=== PATIENT | male | born 1970 | race American Indian/Alaskan Native ===

== ENCOUNTER 2019-10-31 04:04 | Inpatient (IN) | payer OTHER ==
--- NOTE | 2019-10-31 04:36 | Consultation ---
History of Present Illness - Reason for Consult Consult date: 10/31/19 stroke alert - History of Present Illness [facility] Tele[facility]urology Consult Services Date of Service: 10/31/2019 04:09:54 Impression: Rule Out Acute Ischemic Stroke Right Hemispheric Infarct Comments/Sign-Out: 49yo M w pmh of ETOH use/abuse last drink last night last known normal at 19:00 presenting with nausea and vomiting and left sided weakness. Mechanism of Stroke: Possible Thromboembolic Possible Cardioembolic Small Vessel Disease Watershed Infarct Not Clear Metrics: Last Known Well: 10/30/2019 19:00:00 [facility] Notification Time: 10/31/2019 04:09:10 Arrival Time: 10/31/2019 04:04:00 Stamp Time: 10/31/2019 04:09:54 Time First Login Attempt: 10/31/2019 04:13:16 Video Start Time: 10/31/2019 04:13:16 Symptoms: left sided weakness NIHSS Start Assessment Time: 10/31/2019 04:16:00 Patient is not a candidate for Alteplase/Activase. Patient was not deemed candidate for Alteplase/Activase thrombolytics because of Last Well Known Above 4.5 Hours. Video End Time: 10/31/2019 04:35:16 CT head was reviewed and results were: pending official report - no gross hemorrhage, shift or mass; hypodensity on the left IC/subcortical region Clinical Presentation is Suggestive of Large Vessel Occlusive Disease, Recommendations are as Follows CTA Head and Neck. ED Physician notified of diagnostic impression and management plan on 10/31/2019 04:28:41 Our recommendations are outlined below. Recommendations: Activate Stroke Protocol Admission/Order Set Stroke/Telemetry Floor Neuro Checks Bedside Swallow Eval DVT Prophylaxis IV Fluids, Normal Saline Head of Bed 30 Degrees Euglycemia and Avoid Hyperthermia (PRN Acetaminophen) Antiplatelet Therapy Recommended Initiate Aspirin 325 MG Daily if hct confirmed neg for bleed Routine Consultation with Inhouse Neurology for Follow up Care Sign Out: Discussed with Emergency Department Provider History of Present Illness: Patient is a 49 year old Male. Patient was brought by private transportation with symptoms of left sided weakness 49yo M w pmh of ETOH use/abuse last drink last night last known normal at 19:00 presenting with nausea and vomiting and left sided weakness. Ambulatory at baseline. Denies tobacco or drug use. Brought by and left at triage/ER. He denies AC or any medical conditions or medications. Last seen normal was beyond 4.5 hours of presentation. There is no history of hemorrhagic complications or intracranial hemorrhage. There is no history of Recent Anticoagulants. There is no history of recent major surgery. There is no history of recent stroke. Past Medical History: There is NO history of Hypertension There is NO history of Diabetes Mellitus There is NO history of Hyperlipidemia There is NO history of Atrial Fibrillation There is NO history of Stroke Anticoagulant use: No Antiplatelet use: No Examination: BP(181/118), Pulse(87), Blood Glucose(107) 1A: Level of Consciousness - Arouses to minor stimulation + 1 1B: Ask Month and Age - Both Questions Right + 0 1C: Blink Eyes & Squeeze Hands - Performs Both Tasks + 0 2: Test Horizontal Extraocular Movements - Normal + 0 3: Test Visual Ramirez - No Visual Loss + 0 4: Test Facial Palsy (Use Grimace if Obtunded) - Minor paralysis (flat nasolabial fold, smile asymmetry) + 1 5A: Test Left Arm Motor Drift - Some Effort Against [place] + 2 5B: Test Right Arm Motor Drift - No Drift for 10 Seconds + 0 6A: Test Left Leg Motor Drift - Some Effort Against [place] + 2 6B: Test Right Leg Motor Drift - No Drift for 5 Seconds + 0 7: Test Limb Ataxia (FNF/Heel-Simms) - No Ataxia + 0 8: Test Sensation - Mild-Moderate Loss: Less Sharp/More Dull + 1 9: Test Language/Aphasia - Normal; No aphasia + 0 10: Test Dysarthria - Mild-Moderate Dysarthria: Slurring but can be understood + 1 11: Test Extinction/Inattention - No abnormality + 0 NIHSS Score: 8 Patient/Family was informed the Neurology Consult would happen via TeleHealth consult by way of interactive audio and video telecommunications and consented to receiving care in this manner. Due to the immediate potential for life-threatening deterioration due to underlying acute neurologic illness, I spent 31 minutes providing critical care. This time includes time for face to face visit via telemedicine, review of medical records, imaging studies and discussion of findings with providers, the patient and/or family. Dr Laureen Martin [facility] Case [id number] Medications and Allergies Allergies Allergy/AdvReac Type Severity Reaction Status Date / Time codeine Allergy Vomiting Verified 10/31/19 04:06 Exam - Constitutional Vitals: Temp Pulse Resp BP Pulse Ox 97.7 F 87 20 181/118 97 10/31/19 04:05 10/31/19 04:05 10/31/19 04:05 10/31/19 04:05 10/31/19 04:05
--- NOTE | 2019-10-31 04:49 | Cat Scan Report ---
CT HEAD WITHOUT CONTRAST INDICATION / CLINICAL INFORMATION: CODE STROKE PROTOCOL!! LEFT sided deficit, facial droop, weakness. TECHNIQUE: All CT scans at this location are performed using CT dose reduction for ALARA by means of automated e xposure control. COMPARISON: None available. FINDINGS: HEMORRHAGE: None. EXTRA-AXIAL SPACES: Normal in size and morphology for the patient's age. VENTRICULAR SYSTEM: Normal in size and morphology for the patient's age. CEREBRAL PARENCHYMA: No significant abnormality. No acute territorial infarct. MIDLINE SHIFT OR HERNIATION: None. CEREBELLUM / BRAINSTEM: No significant abnormality. ORBITS: Normal as visualized. SOFT TISSUES of HEAD: No significant abnormality. CALVARIUM: No significant abnormality. PARANASAL SINUSES / MASTOID AIR CELLS: Normal as visualized. ADDITIONAL FINDINGS: None. IMPRESSION: 1. No acute intracranial abnormality. CODE STROKE: Time of Communication (DIGITAL WATCH ASSEMBLER/CDT): 3:44 AM central time 10/31/2019 Licensed Practitioner Receiving Report: Kristian Gipson. Signer Name: David Ordonez MD Signed: 10/31/2019 4:45 AM Workstation Name: [id number]
--- NOTE | 2019-10-31 05:14 | Emergency Department Report ---
ED Neuro Deficit HPI - General Chief Complaint: Neuro Symptoms/Deficit Stated Complaint: STROKE LIKE SYMPTOMS Time Seen by Provider: 10/31/19 04:25 Source: patient Mode of arrival: Wheelchair Limitations: No Limitations - History of Present Illness Initial Comments: Patient is 49 years old male with history of chronic alcohol abuse was drinking last night. Patient last well-known time was 1900 yesterday. Patient brought to the emergency room by his for evaluation of left sided weakness. stated that he noticed his weakness when patient tried to get up and fell on the left side. Stroke protocol immediately initiated and patient moved to CT for stat CT brain without contrast. Stroke tele-neurology immediately consulted and patient examined by Dr. Martin. Dr. Martin stated that patient is not a TPA candidate because patient obviously presented more than 4.5 hours after last well-known times. However patient presentation raises concern about large vessels occlusion. CTA neck and CTA brain ordered. Location: left arm, left leg Presenting Symptoms: Present: Weak/Paralyzed One Side Place: home - Related Data Allergies/Adverse Reactions: Allergies Allergy/AdvReac Type Severity Reaction Status Date / Time codeine Allergy Vomiting Verified 10/31/19 04:06 ED Review of Systems ROS: Stated complaint: STROKE LIKE SYMPTOMS Other details as noted in HPI Comment: All other systems reviewed and negative Constitutional: denies: chills, fever Respiratory: denies: cough, shortness of breath, SOB with exertion, SOB at rest Cardiovascular: denies: chest pain Gastrointestinal: denies: abdominal pain, nausea, vomiting Musculoskeletal: denies: back pain Neurological: weakness, numbness. denies: headache ED Past Medical Hx - Past Medical History Previous Medical History?: No - Surgical History Past Surgical History?: Yes Additional Surgical History: Left Shoulder - Social History Smoking Status: Never Smoker ED Neuro Physical Exam - General Limitations: No Limitations General appearance: alert, in no apparent distress Suspected Stroke: Yes - Head Head exam: Present: atraumatic, normocephalic, normal inspection - Eye Eye exam: Present: normal appearance - ENT ENT exam: Present: normal exam, normal orophraynx, mucous membranes moist - Neck Neck exam: Present: normal inspection, full ROM. Absent: tenderness, meningismus - Respiratory Respiratory exam: Present: normal lung sounds bilaterally - Cardiovascular Cardiovascular Exam: Present: regular rate, normal rhythm, normal heart sounds - GI/Abdominal GI/Abdominal exam: Present: soft, normal bowel sounds. Absent: distended, tenderness, guarding, rebound, rigid, organomegaly, mass, bruit, pulsatile mass, hernia - Extremities Exam Extremities exam: Present: normal inspection, full ROM, normal capillary refill - Back Exam Back exam: Present: normal inspection, full ROM. Absent: CVA tenderness (R), CVA tenderness (L) - Neurological Exam Neurological exam: Present: alert, oriented X3, CN II-XII intact - NIHSS Assessment Interval: Baseline 1a. Level of Consciousness: alert/keenly responsive 1b. LOC Questions: answers both correctly 1c. LOC Commands: performs tasks correctly 2. Best Gaze: normal 3. Visual: no visual loss 4. Facial Palsy: normal symmetrical movement 5b. Motor Arm Right: no drift 5a. Motor Arm Left: some gravity effort 6a. Motor Leg Left: some gravity effort 6b. Motor Leg Right: no drift 7. Limb Ataxia: absent 8. Sensory: mild/moderate sensory loss 9. Best Language: no aphasia 10. Dysarthria: mild/moderate dysarthria 11. Extinction/Inattention: no abnormality Total Score: 6 Stroke Severity: Moderate Stroke - Psychiatric Psychiatric exam: Present: normal mood - Skin Skin exam: Present: warm, intact, normal color ED Course Vital Signs 10/31/19 10/31/19 04:05 05:09 Temperature 97.7 F 98.0 F Pulse Rate 87 79 Respiratory 20 20 Rate Blood Pressure 181/118 156/105 [Right] O2 Sat by Pulse 97 96 Oximetry - Lab Data Result diagrams: 10/31/19 04:53 10/31/19 04:53 Lab Results 10/31/19 10/31/19 10/31/19 Range/Units 04:53 04:53 04:53 WBC 9.0 (4.5-11.0) K/mm3 RBC 5.17 H (3.65-5.03) M/mm3 Hgb 16.3 H (11.8-15.2) gm/dl Hct 47.7 H (35.5-45.6) % MCV 92 (84-94) fl MCH 32 (28-32) pg MCHC 34 (32-34) % RDW 14.3 (13.2-15.2) % Plt Count 183 (140-440) K/mm3 Lymph % (Auto) 12.1 L (13.4-35.0) % [place] % (Auto) 5.1 (0.0-7.3) % Eos % (Auto) 0.4 (0.0-4.3) % Baso % (Auto) 0.5 (0.0-1.8) % Lymph # 1.1 L (1.2-5.4) K/mm3 [place] # 0.5 (0.0-0.8) K/mm3 Eos # 0.0 (0.0-0.4) K/mm3 Baso # 0.0 (0.0-0.1) K/mm3 Seg Neutrophils % 81.9 H (40.0-70.0) % Seg Neutrophils # 7.4 (1.8-7.7) K/mm3 PT 12.6 (12.2-14.9) Sec. INR 0.93 (0.87-1.13) APTT 27.2 (24.2-36.6) Sec. Thrombin Time (15.1-19.6) Sec. Sodium 133 L (137-145) mmol/L Potassium 4.1 (3.6-5.0) mmol/L Chloride 100.0 (98-107) mmol/L Carbon Dioxide 23 (22-30) mmol/L Anion Gap 14 mmol/L BUN 17 (9-20) mg/dL Creatinine 1.0 (0.8-1.3) mg/dL Estimated GFR > 60 ml/min BUN/Creatinine Ratio 17 % Glucose 134 H (75-100) mg/dL Calcium 9.0 (8.4-10.2) mg/dL Troponin T < 0.010 (0.00-0.029) ng/mL 10/31/19 Range/Units 04:53 WBC (4.5-11.0) K/mm3 RBC (3.65-5.03) M/mm3 Hgb (11.8-15.2) gm/dl Hct (35.5-45.6) % MCV (84-94) fl MCH (28-32) pg MCHC (32-34) % RDW (13.2-15.2) % Plt Count (140-440) K/mm3 Lymph % (Auto) (13.4-35.0) % [place] % (Auto) (0.0-7.3) % Eos % (Auto) (0.0-4.3) % Baso % (Auto) (0.0-1.8) % Lymph # (1.2-5.4) K/mm3 [place] # (0.0-0.8) K/mm3 Eos # (0.0-0.4) K/mm3 Baso # (0.0-0.1) K/mm3 Seg Neutrophils % (40.0-70.0) % Seg Neutrophils # (1.8-7.7) K/mm3 PT (12.2-14.9) Sec. INR (0.87-1.13) APTT (24.2-36.6) Sec. Thrombin Time 18.1 (15.1-19.6) Sec. Sodium (137-145) mmol/L Potassium (3.6-5.0) mmol/L Chloride (98-107) mmol/L Carbon Dioxide (22-30) mmol/L Anion Gap mmol/L BUN (9-20) mg/dL Creatinine (0.8-1.3) mg/dL Estimated GFR ml/min BUN/Creatinine Ratio % Glucose (75-100) mg/dL Calcium (8.4-10.2) mg/dL Troponin T (0.00-0.029) ng/mL - EKG Data -: EKG Interpreted by [facility] EKG shows normal: sinus rhythm Rate: normal Interpretation: no acute changes - Radiology Data Radiology results: report reviewed - Medical Decision Making Patient is 49 years old male with history of chronic alcohol abuse was drinking last night. Patient last well-known time was 1900 yesterday. Patient brought to the emergency room by his for evaluation of left sided weakness. stated that he noticed his weakness when patient tried to get up and fell on the left side. Stroke protocol immediately initiated and patient moved to CT for stat CT brain without contrast. Stroke tele-neurology immediately consulted and patient examined by Dr. Martin. Dr. Martin stated that patient is not a TPA candidate because patient obviously presented more than 4.5 hours after last well-known times. However patient presentation raises concern about large vessels occlusion. CTA neck and CTA brain ordered. The neck and brain CTA showed no criteria for thrombectomy. Labs reviewed and is negative for acute finding. I discussed the patient with Dr. Garcia, he agreed to admit the patient to medical service for further management. Critical Care Time: Yes Critical care time in (mins) excluding proc time.: 30 Critical care attestation.: If time is entered above; I have spent that time in minutes in the direct care of this critically ill patient, excluding procedure time. ED Disposition Clinical Impression: CVA (cerebral vascular accident) Disposition: 09 OP ADMIT IP TO THIS HOSP Is pt being admited?: Yes Condition: Stable Referrals: PRIMARY CARE,MD [Primary Care Provider] - 3-5 Days
[2019-10-31 05:18] LABS: Basophils % (Auto) 0.5 % (0.0-1.8); Eosinophils % (Auto) 0.4 % (0.0-4.3); Hematocrit 47.7 % (35.5-45.6); Hemoglobin 16.3 gm/dl (11.8-15.2); Lymphocytes # (Auto) 1.1 K/mm3 (1.2-5.4); Lymphocytes % (Auto) 12.1 % (13.4-35.0); Mean Corpuscular HGB Conc 34 % (32-34); Mean Corpuscular Volume 92 fl (84-94); Monocytes # (Auto) 0.5 K/mm3 (0.0-0.8); Monocytes % (Auto) 5.1 % (0.0-7.3); Platelet Count 183 K/mm3 (140-440); Red Blood Count 5.17 M/mm3 (3.65-5.03); Red Cell Distribution Width 14.3 % (13.2-15.2)
[2019-10-31 05:24] LABS: BUN/Creatinine Ratio 17; Blood Urea Nitrogen 17 mg/dL (9-20); Hemolysis Index 23
[2019-10-31 05:30] LABS: INR 0.93 (0.87-1.13)
[2019-10-31 05:31] LABS: Partial Thromboplastin Time 27.2 Sec. (24.2-36.6)
--- NOTE | 2019-10-31 05:51 | Cat Scan Report ---
CT angio head INDICATION / CLINICAL INFORMATION: 49 years Male; POST CODE STROKE PROTOCOL!! Left sided deficits, facial droop.. TECHNIQUE: Thin cut axial images obtained through the head during IV bolus contrast administration. S agittal, coronal, and 3 plane MIP reconstructions performed by the technologist. NASCET type criteria used evaluate stenoses. Automated exposure control utilized for radiation reduction purposes. COMPARISON: None available. FINDINGS: INTERNAL CAROTID ARTERIES: No significant narrowing appreciated. VERTEBROBASILAR SYSTEM: Focal area of mild to moderate narrowing is seen in the mid to distal basilar artery. No other significant narrowing appreciated. Focal, short segment area of mild narrowing is s een in the distal vertebral artery on the right, as well, near the origin of the basilar artery. DISTAL BRANCHES: Distal branches of the anterior, middle, and posterior cerebral arteries are fairly symmetric in appearance and number. However, there is a short segment area of mild to moderate narrowing in the proximal M1 segment on th e right. 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 A majority of blood flow to the right posterior cer ebral artery is via the posterior communicating artery. ANEURYSM: None identified. 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 IMPRESSION: 1. Focal area of mild to moderate narrowing seen in the mid to distal basilar artery. 2. Focal area of mild to moderate narrowing seen in the proximal M1 segment on the right. Signer Name: Bradly Rubin MD, III Signed: 10/31/2019 5:46 AM Workstation Name: [id number]
--- NOTE | 2019-10-31 05:57 | Cat Scan Report ---
CT angio neck INDICATION / CLINICAL INFORMATION: 49 years Male; POST CODE STROKE PROTOCOL!! Left sided deficits, facial droop.. TECHNIQUE: Thin cut axial images obtained through the head during IV bolus contrast administration. S agittal, coronal, and 3 plane MIP reconstructions performed by the technologist. NASCET type criteria used evaluate stenoses. All CT scans at this location are performed using CT dose reduction for ALAR A by means of automated exposure control. COMPARISON: None available. FINDINGS: ARCH: Normal aortic arch branching suggested. CAROTID ARTERIES: The visualized common and internal carotid arteries are widely patent. VERTEBRAL ARTERIES: Codominant vertebral system seen. No significant stenosis appreciated. ADDITIONAL FINDINGS: Prominent soft tissue is seen in the vallecula, presumably related to lingual to nsillar tissue. Please clinically correlate. Thyroid gland is mildly prominent. No nodule seen. Mild to moderate osseous foraminal narrowing is seen on the left at C5-6 and C6-7 from uncinate hyper trophy. Similar findings seen on the right at C6-7. Mild disc disease seen at various levels. No sign ificant canal stenosis appreciated. 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 IMPRESSION: No significant stenosis appreciated on this CTA of the neck. Signer Name: Bradly Rubin MD, III Signed: 10/31/2019 5:53 AM Workstation Name: [id number]
[2019-10-31] MEDS ORDERED: SENNOSIDES 8.6 MG TAB PO PRN (08:10)
[2019-10-31] MEDS ORDERED: PROMETHAZINE 25 MG RECT SUPP PR PRN (08:10)
[2019-10-31] MEDS ORDERED: ACETAMINOPHEN 325 MG TAB PO PRN (08:10)
[2019-10-31] MEDS ORDERED: MAGNESIUM HYDROXIDE (MOM) ORAL LIQD UDC PO PRN (08:10)
[2019-10-31] MEDS ORDERED: METOCLOPRAMIDE 10 MG TAB PO PRN (08:10)
[2019-10-31] MEDS ORDERED: SODIUM CHLORIDE 0.45% 1000 ML 1,000 ML IV SCH (09:00)
[2019-10-31] MEDS: ONDANSETRON 4 MG/2 ML INJ IV PRN (09:00)
--- NOTE | 2019-10-31 09:13 | History and Physical Report ---
History of Present Illness Date of examination: 10/31/19 Date of admission: 10/31/19 06:16 Chief complaint: weakness History of present illness: This is a 49-year-old patient who presents to the emergency department on 10/30 for evaluation of left-sided weakness. The patient states he had 2 beers around 9 PM on 10/29 and then he went to sleep however at 0100 his noted that he had problems standing up and he had a fall of a fall with no injury. Stroke protocol was initiated in the emergency department. He was determined to not be a TPA candidate because he presented more than 4.5 hours after last known well. 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 Patient denies any cough, chest pain, fevers, weight loss, hemoptysis, fatigue. Patient will be admitted to the hospital service for CVA work-up. Neurology has been consulted. Past History Past Medical History: No medical history Past Surgical History: Other (Left shoulder) Social history: , lives with family, full code. denies: smoking, alcohol abuse, prescription drug abuse, IV drug use Family history: no significant family history Medications and Allergies Allergies Allergy/AdvReac Type Severity Reaction Status Date / Time codeine Allergy Vomiting Verified 10/31/19 04:06 Active Meds: Active Medications Acetaminophen (Tylenol) 650 mg PO Q4H PRN PRN Reason: Pain, Mild (1-3) Atorvastatin Calcium (Lipitor) 40 mg PO QHS ANGEL[facility] Bisacodyl (Dulcolax) 10 mg MS QDAY PRN PRN Reason: Constipation Docusate Sodium (Colace) 100 mg PO BID ANGELA Sodium Chloride (Nacl 0.45% 1000 Ml) 1,000 mls @ 75 mls/hr IV DIRECT ANGELA Stop: 10/31/19 22:19 Magnesium Hydroxide (Milk Of Magnesia) 30 ml PO Q4H PRN PRN Reason: Constipation Metoclopramide HCl (Reglan) 10 mg PO Q6H PRN PRN Reason: Nausea And Vomiting Ondansetron HCl (Zofran) 4 mg IV Q8H PRN PRN Reason: Nausea And Vomiting Last Admin: 10/31/19 09:00 Dose: 4 mg Documented by: Promethazine HCl (Phenergan) 25 mg MS Q6H PRN PRN Reason: Nausea And Vomiting Senna (Senokot) 8.6 mg PO Q12H PRN PRN Reason: Laxative Effect Sodium Chloride (Sodium Chloride Flush Syringe 10 Ml) 10 ml IV PRN PRN PRN Reason: LINE FLUSH Review of Systems Constitutional: weakness, no weight loss, no weight gain, no fever, no chills, no sweats, no night sweats, no anorexia, no fatigue Ears, nose, mouth and throat: no ear pain, no ear discharge, no tinnitis, no decreased hearing, no nose pain, no nasal congestion, no nasal discharge, no sinus pressure, no sinus pain, no epistaxis, no bleeding gums, no sore throat, no post-nasal drip, no headache, no neck fullness/pressure Cardiovascular: no chest pain, no orthopnea, no palpitations, no rapid/irregular heart beat, no edema, no syncope, no lightheadedness, no shortness of breath, no dyspnea on exertion, no high blood pressure, no leg edema Respiratory: cough, no cough with sputum, no excessive sputum, no hemoptysis, no shortness of breath, no dyspnea on exertion, no congestion, no wheezing, no pleurisy, no pain Gastrointestinal: nausea, vomiting (3 episodes today), no abdominal pain, no diarrhea, no constipation, no change in bowel habits, no hematemesis, no coffee ground emesis, no BRBPR, no melena, no hematochezia, no heartburn, no indigestion, no excessive gas Genitourinary Male: no dysuria, no hematuria, no flank pain, no discharge, no urinary frequency, no urinary hesitancy, no nocturia, no incontinence, no erectile dysfunction, no polyuria Rectal: no pain, no incontinence, no bleeding, no itching, no hemorrhoids Musculoskeletal: no neck stiffness, no neck pain, no shooting arm pain, no arm numbness/tingling, no low back pain, no shooting leg pain, no leg numbness/tingling, no morning stiffness, no muscle weakness, no frequent falls Integumentary: no rash, no pruritis, no redness, no sores, no wounds, no jaundice, no unusual bruising Neurological: transient paralysis, paralysis (left arm), lack of coordination, no head injury, no weakness, no parathesias, no numbness, no tingling, no seizures, no syncope, no tremors, no headaches, no migraines, no convulsions, no aphasia, no confusion, no changes in smell/taste Psychiatric: no anxiety, no memory loss, no change in sleep habits, no insomnia, no hypersomnia, no change in appetite, no disorientation Endocrine: no cold intolerance, no heat intolerance, no polyphagia, no excessive thirst, no polydipsia, no polyuria, no nocturia, no excessive sweating, no weight change, no high blood sugars Hematologic/Lymphatic: no easy bruising, no easy bleeding Allergic/Immunologic: no allergic rhinitis, no wheezing, no persistent i nfections Exam - Constitutional Vitals: Temp Pulse Resp BP Pulse Ox 98.0 F 84 18 176/100 97 10/31/19 08:16 10/31/19 08:16 10/31/19 08:16 10/31/19 08:16 10/31/19 08:16 General appearance: Present: well-nourished - EENT Eyes: Present: PERRL, EOM intact ENT: hearing intact, clear oral mucosa - Neck Neck: Present: supple, normal ROM - Respiratory Respiratory effort: normal Respiratory: bilateral: CTA - Cardiovascular Rhythm: regular Heart Sounds: Present: S1 & S2. Absent: systolic murmur, diastolic murmur - Extremities Extremities: no ischemia, pulses intact, pulses symmetrical, No edema, normal temperature, normal color Peripheral Pulses: within normal limits - Abdominal General gastrointestinal: Present: soft, non-tender, non-distended, normal bowel sounds - Integumentary Integumentary: Present: clear, warm, dry - Musculoskeletal Musculoskeletal: left sided weakness - Psychiatric Psychiatric: cooperative - Neurologic Neurologic: CNII-XII intact, focal deficits (left UE paralysis with Left facial droop), no moves all extremities (does nto move left UE) - Allied Health Allied health notes reviewed: nursing HEART Score - HEART Score Troponin: Troponin T < 0.010 ng/mL (0.00-0.029) 10/31/19 04:53 Results - Labs CBC & Chem 7: 10/31/19 04:53 10/31/19 04:53 Labs: Laboratory Last Values WBC 9.0 K/mm3 (4.5-11.0) 10/31/19 04:53 RBC 5.17 M/mm3 (3.65-5.03) H 10/31/19 04:53 Hgb 16.3 gm/dl (11.8-15.2) H 10/31/19 04:53 Hct 47.7 % (35.5-45.6) H 10/31/19 04:53 MCV 92 fl (84-94) 10/31/19 04:53 MCH 32 pg (28-32) 10/31/19 04:53 MCHC 34 % (32-34) 10/31/19 04:53 RDW 14.3 % (13.2-15.2) 10/31/19 04:53 Plt Count 183 K/mm3 (140-440) 10/31/19 04:53 Lymph % (Auto) 12.1 % (13.4-35.0) L 10/31/19 04:53 Trigg % (Auto) 5.1 % (0.0-7.3) 10/31/19 04:53 Eos % (Auto) 0.4 % (0.0-4.3) 10/31/19 04:53 Baso % (Auto) 0.5 % (0.0-1.8) 10/31/19 04:53 Lymph # 1.1 K/mm3 (1.2-5.4) L 10/31/19 04:53 Trigg # 0.5 K/mm3 (0.0-0.8) 10/31/19 04:53 Eos # 0.0 K/mm3 (0.0-0.4) 10/31/19 04:53 Baso # 0.0 K/mm3 (0.0-0.1) 10/31/19 04:53 Seg Neutrophils % 81.9 % (40.0-70.0) H 10/31/19 04:53 Seg Neutrophils # 7.4 K/mm3 (1.8-7.7) 10/31/19 04:53 PT 12.6 Sec. (12.2-14.9) 10/31/19 04:53 INR 0.93 (0.87-1.13) 10/31/19 04:53 APTT 27.2 Sec. (24.2-36.6) 10/31/19 04:53 Thrombin Time 18.1 Sec. (15.1-19.6) 10/31/19 04:53 Sodium 133 mmol/L (137-145) L 10/31/19 04:53 Potassium 4.1 mmol/L (3.6-5.0) 10/31/19 04:53 Chloride 100.0 mmol/L (98-107) 10/31/19 04:53 Carbon Dioxide 23 mmol/L (22-30) 10/31/19 04:53 Anion Gap 14 mmol/L 10/31/19 04:53 BUN 17 mg/dL (9-20) 10/31/19 04:53 Creatinine 1.0 mg/dL (0.8-1.3) 10/31/19 04:53 Estimated GFR > 60 ml/min 10/31/19 04:53 BUN/Creatinine Ratio 17 % 10/31/19 04:53 Glucose 134 mg/dL (75-100) H 10/31/19 04:53 Calcium 9.0 mg/dL (8.4-10.2) 10/31/19 04:53 Troponin T < 0.010 ng/mL (0.00-0.029) 10/31/19 04:53 Nance/IV: Voiding Method Urinal IV Catheter Type [Right Peripheral IV Antecubital] Assessment and Plan - Patient Problems (1) CVA (cerebral vascular accident) Current Visit: Yes Status: Acute Plan to address problem: Neurology consult 10/30 CT head shows no acute intracranial abnormality 10/30 CTA neck shows no significant stenosis appreciated. Mildly prominent thyroid gland noted. 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 MRI brain per neurology Permissive hypertension for 24 to 48 hours, target blood pressure less than 210/110 ST/PT/OT consult Aspirin and statin therapy Seizure precautions Aspiration and fall precautions Maintenance IV fluid 1 L while n.p.o. until bedside swallow evaluation completed Maintain euglycemia and euthermia 10/30 Hemoglobin A1c pending 10/30 lipid panel pending (2) Hypertensive emergency Current Visit: Yes Status: Acute Plan to address problem: Presentation blood pressure 181/118 Permissive hypertension for 24 to 48 hours for CVA We will monitor blood pressure and add antihypertensive as needed Blood pressure monitor per protocol (3) Hyponatremia Current Visit: Yes Status: Acute Plan to address problem: Admit sodium 133, mild Monitor neuro status Trend BMP Maintenance IV fluid for 1 L (4) DVT prophylaxis Current Visit: Yes Status: Acute Plan to address problem: SCDs to bilateral lower extremities while in bed Heparin subcu (5) Full code status Current Visit: Yes Status: Acute
[2019-10-31] MEDS: DOCUSATE SODIUM 100 MG CAP PO SCH ×2 (10:16→21:00)
[2019-10-31] MEDS ORDERED: SODIUM CHLORIDE 0.9% 1000 ML 1,000 ML IV SCH (10:45)
[2019-10-31] MEDS ORDERED: SODIUM CHLORIDE 0.9% 100 ML IVPB IV SCH (11:00)
--- NOTE | 2019-10-31 13:20 | Consultation ---
History of Present Illness Consult date: 10/31/19 Requesting physician: AILYN LOPEZ Reason for Consult: stroke Chief complaint: left sided weakness History of present illness: 49 yo M w hx of ETOH abuse arrived w acute L sided weakness, LTKW 1900 day prior, no prior strokes no sz per hx CT head neg CTA h/n + for intracranial stenosis , basilar and R M1 [id number] EKG NSR coag normal chem normal on asa and statin will add dual antiplt plan for intracranial stenosis x 90 days pt states his brought him in bec he wasnt acting right NO CASE, sz, or fever no LOC no n/v no change of vision pt feels L side face arm leg are weakness and 'cant feel' no cortical deficits no recur strokes in house no pain denies sx of etoh w/d no recur strokes no report of a.fib chart review: pt presents in room from triage for left sided weakness. pt is sleepy but wakes up when questioned, oriented x4, rr even and unlabored, unable to ambulate at this time, unable to move left arm. current BP 156/105, all other vital signs WNL. Code stroke protocol initiated, will reassess. This is a 49-year-old patient who presents to the emergency department on 10/30 for evaluation of left-sided weakness. The patient states he had 2 beers around 9 PM on 10/29 and then he went to sleep however at 0100 his noted that he had problems standing up and he had a fall of a fall with no injury. Stroke protocol was initiated in the emergency department. He was determined to not be a TPA candidate because he presented more than 4.5 hours after last known well. 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 Patient denies any cough, chest pain, fevers, weight loss, hemoptysis, fatigue. Patient will be admitted to the hospital service for CVA work-up. Neurology has been consulted. Past History Past Medical History: No medical history Past Surgical History: Other (Left shoulder) Social history: , lives with family, full code. denies: smoking, alcohol abuse, prescription drug abuse, IV drug use Family history: no significant family history Medications and Allergies Allergies Allergy/AdvReac Type Severity Reaction Status Date / Time codeine Allergy Vomiting Verified 10/31/19 04:06 Active Meds: Active Medications Acetaminophen (Tylenol) 650 mg PO Q4H PRN PRN Reason: Pain, Mild (1-3) Aspirin (Aspirin) 325 mg PO QDAY [facility] Atorvastatin Calcium (Lipitor) 40 mg PO QHS [facility] Bisacodyl (Dulcolax) 10 mg AR QDAY PRN PRN Reason: Constipation Docusate Sodium (Colace) 100 mg PO BID [facility] Last Admin: 10/31/19 10:16 Dose: 100 mg Documented by: Heparin Sodium (Porcine) (Heparin) 5,000 unit SUB-Q Q12HR [facility] Sodium Chloride (Nacl 0.9% 1000 Ml) 1,000 mls @ 75 mls/hr IV DIRECT [facility] Stop: 11/01/19 00:04 Last Admin: 10/31/19 13:00 Dose: 75 mls/hr Documented by: Magnesium Hydroxide (Milk Of Magnesia) 30 ml PO Q4H PRN PRN Reason: Constipation Metoclopramide HCl (Reglan) 10 mg PO Q6H PRN PRN Reason: Nausea And Vomiting Ondansetron HCl (Zofran) 4 mg IV Q8H PRN PRN Reason: Nausea And Vomiting Last Admin: 10/31/19 09:00 Dose: 4 mg Documented by: Promethazine HCl (Phenergan) 25 mg AR Q6H PRN PRN Reason: Nausea And Vomiting Senna (Senokot) 8.6 mg PO Q12H PRN PRN Reason: Laxative Effect Sodium Chloride (Sodium Chloride Flush Syringe 10 Ml) 10 ml IV PRN PRN PRN Reason: LINE FLUSH Physical Examination - Vital Signs Vital Signs: Vital Signs Temp Pulse Resp BP Pulse Ox 97.7 F 87 20 181/118 97 10/31/19 04:05 10/31/19 04:05 10/31/19 04:05 10/31/19 04:05 10/31/19 04:05 AOx4 no aphasia no agnosia CN tested: L face droop lower, pt denies sensory changes when testing EOMI PERRLA VFF no extra movements L sided power 4/5 UE LE R side UE LE 5/5 pt denies loss of LT on L or R UE LE neck supple no d/c nose ears tongue protrudes straight no cerebellar signs skin intact no asymm edema no resp distress Results - Laboratory Findings CBC and BMP: 10/31/19 04:53 10/31/19 04:53 Abnormal Lab Findings: Abnormal Labs 10/31/19 10/31/19 04:53 04:53 RBC 5.17 H Hgb 16.3 H Hct 47.7 H Lymph % (Auto) 12.1 L Lymph # 1.1 L Seg Neutrophils % 81.9 H Sodium 133 L Glucose 134 H Assessment and Plan concern for stroke acute isch R MCA vs basilar distribution, small vessel occlusion, lacunar , stable intracranial stenosis : basilar no stroke recur no hx of DM elevated amm hx of ETOH abuse CIWA asa plavix high dose statin tele pt will need aggressive medical mgmt of atherosc. dis, the basilar stenosis is very concerning and needs to be followed avoid rapid position change, constipation and straining valsalva, iatrogenic hypotension, dehydration avoid ETOH and other harmful toxins avoid harmful foods and lifestyles that contribute / promote to atherosc. dis a1c/lipids PT OT MRI b keep normotensive euglycemic
[2019-10-31 14:29] LABS: Alanine Aminotransferase 42 units/L (7-56); Albumin 3.9 g/dL (3.9-5)
[2019-10-31 14:38] LABS: Bilirubin,Direct < 0.2 mg/dL (0-0.2)
[2019-10-31] MEDS: LACTULOSE 20 GM/30 ML ORAL LIQD PO SCH (17:48)
[2019-10-31] MEDS: CLOPIDOGREL 75 MG TAB PO SCH (17:48)
[2019-10-31 18:22] LABS: Chol/HDL Ratio 5.81 %
[2019-10-31] MEDS: HEPARIN 5,000 UNIT/1 ML VIAL SUB-Q SCH (21:00)
[2019-11-01] MEDS: LACTULOSE 20 GM/30 ML ORAL LIQD PO SCH ×3 (00:08→11:41)
[2019-11-01 06:07] LABS: Hematocrit 50.9 % (35.5-45.6); Hemoglobin 16.9 gm/dl (11.8-15.2); Mean Corpuscular HGB Conc 33 % (32-34); Mean Corpuscular Volume 94 fl (84-94); Platelet Count 210 K/mm3 (140-440); Red Blood Count 5.42 M/mm3 (3.65-5.03); Red Cell Distribution Width 14.4 % (13.2-15.2)
[2019-11-01 06:16] LABS: BUN/Creatinine Ratio 10; Blood Urea Nitrogen 9 mg/dL (9-20); Calcium 9.6 mg/dL (8.4-10.2); Hemolysis Index 8
[2019-11-01] MEDS ORDERED: CLOPIDOGREL 75 MG TAB PO SCH (08:00)
--- NOTE | 2019-11-01 11:27 | Magnetic Resonance Report ---
MRI BRAIN 11/01/2019 INDICATION / CLINICAL INFORMATION: acute L sided weakness, w/u isch process. TECHNIQUE: Multiplanar, multisequence MR images of the brain were obtained. COMPARISON: CT brain 10/31/2019 FINDINGS: BRAIN / INTRACRANIAL CONTENTS: Unenhanced MR images of the brain demonstrate 1.2 cm area of restricte d diffusion in the posterior limb of right internal capsule, consistent with acute ischemic injury. S ome increased T2-weighted signal is also noted on the FLAIR and T2-weighted images. No other areas of acute ischemic change are present. Ventricles and sulci are normal in size and shape. A few scattered nonspecific white matter T2 weight ed hyperintensities are present in the cerebral hemispheric white matter. There is no evidence of hemorrhage or mass. There are no abnormal extra-axial fluid collections. EXTRACRANIAL: Unremarkable CRANIOCERVICAL JUNCTION: No significant abnormality. VASCULAR FLOW-VOIDS: No significant abnormality. IMPRESSION: Acute/recent 1.2 cm right subcortical infarct in the posterior limb of the internal capsule. No evid ence of hemorrhage. Signer Name: Jose Manuel Sanches MD Signed: 11/01/2019 11:22 AM Workstation Name: [email or web address]
--- NOTE | 2019-11-01 11:29 | Progress Note ---
Assessment and Plan concern for stroke acute isch R MCA vs basilar distribution, small vessel occlusion, lacunar, stable MRI b completed and report pending asa + plavix for 90 d for intracranial stenosis statin LD 186, a1c 5.[address] echo report pending, r/o central clot BP control Subjective Date of service: 11/01/19 Principal diagnosis: stroke Interval history: no events overnight no a.fib on tele no recur strokes on antiplt just back from MRI b no vomiting, some nausea no sig CASE no LOC L arm per pt improving L leg the same no confusion Objective - Exam Narrative Exam: [id number] no aphasia no agnosia no dysarthria CN 2-12 tested , mild L sided flattening of NLF, full sensation eomi perrl L ARM > leg weakness 3-4/5 R UE LE 5/5 no extra movements sensation intact tongue midline - Vital Sign Vital Signs - 12hr 11/01/19 11/01/19 11/01/19 00:00 00:14 04:39 Temperature 98.1 F 98.8 F Pulse Rate 74 75 Respiratory 18 18 Rate Blood Pressure 184/123 O2 Sat by Pulse 97 Oximetry 11/01/19 07:34 Temperature 98.1 F Pulse Rate 73 Respiratory 18 Rate Blood Pressure 176/118 O2 Sat by Pulse 96 Oximetry - Laboratory Findings CBC and BMP: 11/01/19 05:04 11/01/19 05:04 Abnormal Lab Findings: Abnormal Labs 10/31/19 10/31/19 10/31/19 04:53 04:53 13:22 RBC 5.17 H Hgb 16.3 H Hct 47.7 H Lymph % (Auto) 12.1 L Lymph # 1.1 L Seg Neutrophils % 81.9 H Sodium 133 L Glucose 134 H Ammonia 61.0 H Cholesterol LDL Cholesterol Direct 10/31/19 11/01/19 11/01/19 17:04 05:04 05:04 RBC 5.42 H Hgb 16.9 H Hct 50.9 H Lymph % (Auto) Lymph # Seg Neutrophils % Sodium Glucose 107 H Ammonia Cholesterol 250 H LDL Cholesterol Direct 186 H
[2019-11-01] MEDS: DOCUSATE SODIUM 100 MG CAP PO SCH ×2 (11:40→22:17)
[2019-11-01] MEDS: ASPIRIN 325 MG TAB PO SCH (11:40)
[2019-11-01] MEDS: HEPARIN 5,000 UNIT/1 ML VIAL SUB-Q SCH ×2 (11:40→22:18)
[2019-11-01] MEDS: ONDANSETRON 4 MG/2 ML INJ IV PRN (11:40)
[2019-11-01] MEDS: CLOPIDOGREL 75 MG TAB PO SCH (11:41)
[2019-11-01] MEDS ORDERED: LORazepam 2 MG TAB PO PRN ×2 (12:41)
--- NOTE | 2019-11-01 12:41 | Progress Note ---
Assessment and Plan - Patient Problems (1) CVA (cerebral vascular accident) Current Visit: Yes Status: Acute Plan to address problem: Neurology consult 10/30 CT head shows no acute intracranial abnormality 10/30 CTA neck shows no significant stenosis appreciated. Mildly prominent thyroid gland noted. 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 10/31 MRI brain shows an acute/recent 1.2 cm right subcortical infarct in the posterior limb of the internal capsule Permissive hypertension for 24 hrs target blood pressure less than 210/110 ST/PT/OT consult Aspirin and statin therapy 10/31 SPRING inhibitor started presents for hypertension Seizure precautions Aspiration and fall precautions Speech therapy assessment completed and recommended a mechanical soft diet with thin liquids PT discharge recommendations TBD per note Maintain euglycemia and euthermia 10/30 Hemoglobin A1c 5.6 10/30 lipid panel: triglycerides 102, cholesterol 250, LDL 186, HDL 43 (2) Hypertensive emergency Current Visit: Yes Status: Acute Plan to address problem: Presentation blood pressure 181/118 Permissive hypertension for 24 hours for CVA Labetalol PRN for systolic blood pressure more than 160 10/31 started lisinopril Blood pressure monitor per protocol (3) Hyponatremia Current Visit: Yes Status: Resolved Plan to address problem: Admit sodium 133, mild Monitor neuro status Trend BMP Maintenance IV fluid for 1 L 10/31 sodium 137 (4) Hyperammonemia Current Visit: Yes Status: Resolved Plan to address problem: Hyperammonia: 10/30 ammonia 61 Lactulose p.o. every 6 Trend ammonia Supportive care 10/31 ammonia 40 (5) Alcohol abuse Current Visit: Yes Status: Chronic Plan to address problem: Admitted with hyperammonia, Corrected with lactulose CIWA protocol initiated Patient initially denied chronic alcohol use however on 10/31 he admits to having 2-3 beers every other day and occasional liquor intake on weekends. (6) Hypophosphatasia Current Visit: Yes Status: Acute Plan to address problem: 9/23 phosphorus 2.3 Repeated Recheck phosphorus in the a.m. (7) DVT prophylaxis Current Visit: Yes Status: Acute Plan to address problem: SCDs to bilateral lower extremities while in bed Heparin subcu History Interval history: This is a 49-year-old patient who presents to the emergency department on 10/30 for evaluation of left-sided weakness. The patient states he had 2 beers around 9 PM on 10/29 and then he went to sleep however at 0100 his noted that he had problems standing up and he had a fall of a fall with no injury. Stroke protocol was initiated in the emergency department. He was determined to not be a TPA candidate because he presented more than 4.5 hours after last known well. 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 Neurology has been consulted. PT/ST consulted. Today on exam he still exhibits left-sided flaccidity in his upper extremity and his lower extremity is weak. Patient still has a left-sided droop. Sensation is intact bilaterally. PT discharge recommendations pending. Hospitalist Physical - Constitutional Vitals: Temp Pulse Resp BP Pulse Ox 98.3 F 66 18 182/107 99 11/01/19 11:20 11/01/19 11:40 11/01/19 11:20 11/01/19 11:40 11/01/19 11:20 General appearance: Present: no acute distress, well-nourished - EENT Eyes: Present: EOM intact ENT: hearing intact, clear oral mucosa - Neck Neck: Present: supple, normal ROM - Respiratory Respiratory effort: normal Respiratory: bilateral: CTA - Cardiovascular Rhythm: regular Heart Sounds: Present: S1 & S2. Absent: systolic murmur, diastolic murmur - Extremities Extremities: no ischemia, pulses intact, pulses symmetrical, No edema, normal temperature, normal color Peripheral Pulses: within normal limits - Abdominal General gastrointestinal: soft, non-tender, non-distended, normal bowel sounds - Integumentary Integumentary: Present: clear, warm, dry - Psychiatric Psychiatric: cooperative - Neurologic Neurologic: CNII-XII intact, focal deficits (Left sided facial droop, LUE flaccid, LLE weak), no moves all extremities - Allied Health Allied health notes reviewed: nursing, PT, ST, social work, case management HEART Score - HEART Score Troponin: Troponin T < 0.010 ng/mL (0.00-0.029) 10/31/19 04:53 Results - Labs CBC & Chem 7: 11/01/19 05:04 11/01/19 05:04 Labs: Laboratory Last Values WBC 10.5 K/mm3 (4.5-11.0) 11/01/19 05:04 RBC 5.42 M/mm3 (3.65-5.03) H 11/01/19 05:04 Hgb 16.9 gm/dl (11.8-15.2) H 11/01/19 05:04 Hct 50.9 % (35.5-45.6) H 11/01/19 05:04 MCV 94 fl (84-94) 11/01/19 05:04 MCH 31 pg (28-32) 11/01/19 05:04 MCHC 33 % (32-34) 11/01/19 05:04 RDW 14.4 % (13.2-15.2) 11/01/19 05:04 Plt Count 210 K/mm3 (140-440) 11/01/19 05:04 Lymph % (Auto) 12.1 % (13.4-35.0) L 10/31/19 04:53 Griggs % (Auto) 5.1 % (0.0-7.3) 10/31/19 04:53 Eos % (Auto) 0.4 % (0.0-4.3) 10/31/19 04:53 Baso % (Auto) 0.5 % (0.0-1.8) 10/31/19 04:53 Lymph # 1.1 K/mm3 (1.2-5.4) L 10/31/19 04:53 Griggs # 0.5 K/mm3 (0.0-0.8) 10/31/19 04:53 Eos # 0.0 K/mm3 (0.0-0.4) 10/31/19 04:53 Baso # 0.0 K/mm3 (0.0-0.1) 10/31/19 04:53 Seg Neutrophils % 81.9 % (40.0-70.0) H 10/31/19 04:53 Seg Neutrophils # 7.4 K/mm3 (1.8-7.7) 10/31/19 04:53 PT 12.6 Sec. (12.2-14.9) 10/31/19 04:53 INR 0.93 (0.87-1.13) 10/31/19 04:53 APTT 27.2 Sec. (24.2-36.6) 10/31/19 04:53 Thrombin Time 18.1 Sec. (15.1-19.6) 10/31/19 04:53 Sodium 137 mmol/L (137-145) 11/01/19 05:04 Potassium 3.8 mmol/L (3.6-5.0) 11/01/19 05:04 Chloride 101.2 mmol/L (98-107) 11/01/19 05:04 Carbon Dioxide 23 mmol/L (22-30) 11/01/19 05:04 Anion Gap 17 mmol/L 11/01/19 05:04 BUN 9 mg/dL (-20) 11/01/19 05:04 Creatinine 0.9 mg/dL (0.8-1.3) 11/01/19 05:04 Estimated GFR > 60 ml/min 11/01/19 05:04 BUN/Creatinine Ratio 10 % 11/01/19 05:04 Glucose 107 mg/dL (75-100) H 11/01/19 05:04 POC Glucose 94 (70-105) 11/01/19 11:39 Hemoglobin A1c 5.6 % (4-6) 10/31/19 17:04 Calcium 9.6 mg/dL (8.4-10.2) 11/01/19 05:04 Total Bilirubin 0.40 mg/dL (0.1-1.2) 10/31/19 13:22 Direct Bilirubin < 0.2 mg/dL (0-0.2) 10/31/19 13:22 Indirect Bilirubin 0.2 mg/dL 10/31/19 13:22 AST 21 units/L (5-40) 10/31/19 13:22 ALT 42 units/L (7-56) 10/31/19 13:22 Alkaline Phosphatase 114 units/L (35-129) 10/31/19 13:22 Troponin T < 0.010 ng/mL (0.00-0.029) 10/31/19 04:53 Ammonia 40.0 umol/L (25-60) 11/01/19 05:04 Total Protein 7.2 g/dL (6.3-8.2) 10/31/19 13:22 Albumin 3.9 g/dL (3.9-5) 10/31/19 13:22 Albumin/Globulin Ratio 1.2 % 10/31/19 13:22 Triglycerides 102 mg/dL (2-149) 10/31/19 17:04 Cholesterol 250 mg/dL (50-199) H 10/31/19 17:04 LDL Cholesterol Direct 186 mg/dL (50-130) H 10/31/19 17:04 HDL Cholesterol 43 mg/dL (40-59) 10/31/19 17:04 Cholesterol/HDL Ratio 5.81 % 10/31/19 17:04 - Diagnostic Impressions Diagnostic Impressions: Echocardiogram 10/31/19 19:22 Transthoracic Echocardiogram Indication: Stroke BP: 184/123 HR: 62 Conclusions *The study was technically limited due to the patient's body habitus and positioning. *Global left ventricular systolic function is normal. *The estimated ejection fraction is 55-60%. *Abnormal left ventricular diastolic filling is observed, consistent with impaired relaxation. *There is mild mitral regurgitation. *There is no pericardial effusion. Findings Procedure Info: The study was technically limited due to the patient's inability to lay in the left lateral decubitus position. Patients' body habitus and positioning. Left Ventricle: The left ventricular chamber size is normal. Global left ventricular systolic function is normal. The estimated ejection fraction is 55-60%. Abnormal left ventricular diastolic filling is observed, consistent with impaired relaxation. Left Atrium: The left atrial chamber size is normal. Right Ventricle: The right ventricular cavity size is normal. Right Atrium: The right atrial cavity size is normal. Aortic Valve: The aortic valve is trileaflet. There is no evidence of aortic regurgitation. There is no evidence of aortic stenosis. Mitral Valve: The mitral valve leaflets appear normal. There is mild mitral regurgitation. Tricuspid Valve: The tricuspid valve leaflets are normal. There is trace tricuspid regurgitation. Pulmonic Valve: The pulmonic valve appears normal. There is trace pulmonic regurgitation. Pericardium: There is no pericardial effusion. Aorta: The aorta appears normal. Venous: The inferior vena cava appears normal in size. Measurements Chambers 2D Name Value Normal Range IVSd (2D) 1.07 cm (0.6 - 1.1) LVPWd (2D) 1.07 cm (0.6 - 1.1) LVIDd (2D) 4.23 cm (3.7 - 5.6) LVIDs (2D) 2.72 cm (2 - 3.8) LV FS (2D) 35.77 % - EF Teichholz (2D) 65.66 % - Ao root diameter (2D) 3.03 cm (2 - 3.7) Volumes/Mass Name Value Normal Range LA ESV SP 4CH (A/L) 25.97 ml - LA ESV SP 2CH (A/L) 18.93 ml - LA ESV BP (A/L) 22.21 ml - LA ESV SP 4CH (MOD) 23.65 ml - LA ESV SP 2CH (MOD) 17.98 ml - LV EDV SP 4CH (MOD) 73.1 ml - LV ESV SP 4CH (MOD) 29.2 ml - EF SP 4CH (MOD) 60.05 % - LV EDV SP 2CH (MOD) 76.43 ml - LV ESV SP 2CH (MOD) 25.85 ml - EF SP 2CH (MOD) 66.18 % - LV EDV BP 75.79 ml - LV ESV BP 28.12 ml - BP EF (MOD) 62.9 % - Diastolic/Systolic Function Name Value Normal Range MV E-wave Vmax 0.81 m/sec - MV deceleration time 239.53 msec - MV A-wave Vmax 0.8 m/sec - MV E:A ratio 1.01 ratio - Aortic Valve Name Value Normal Range AV Vmax 1.1 m/sec - AV VTI 21.59 cm - AV peak gradient 4.86 mmHg - AV mean gradient 2.57 mmHg - LVOT diameter 2.18 cm - LVOT Vmax 0.85 m/sec - LVOT VTI 17.49 cm - LVOT peak gradient 2.91 mmHg - LVOT mean gradient 1.32 mmHg - SV LVOT 65.35 ml - MARCUS (continuity Vmax) 2.89 cm2 - MARCUS (continuity VTI) 3.03 cm2 - Ascending Ao 3.16 cm - Tricuspid Valve Name Value Normal Range IVC diameter 0.97 cm (1.2 - 2.3) Pulmonic Valve/Qp:Qs Name Value Normal Range PV Vmax 1.09 m/sec - PV VTI 17.49 cm - PV peak gradient 4.75 mmHg - PV mean gradient 1.55 mmHg - NV end-diastolic Vmax 0.73 m/sec - RVOT Vmax 0.59 m/sec - RVOT VTI 12.02 cm - RVOT peak gradient 1.41 mmHg - Nance/IV: Voiding Method Urinal IV Catheter Type [Right INT / Saline Lock Forearm] IV Catheter Type [Right Peripheral IV Antecubital] Active Medications - Current Medications Current Medications: Generic Name Dose Route Start Last Admin Trade Name Freq PRN Reason Stop Dose Admin Acetaminophen 650 mg 10/31/19 08:10 Tylenol PO Q4H PRN Pain, Mild (1-3) Aspirin 325 mg 11/01/19 10:00 11/01/19 11:40 Aspirin PO 325 mg QDAY ANGELA Administration Atorvastatin Calcium 40 mg 10/31/19 22:00 10/31/19 21:00 Lipitor PO 40 mg QHS ANGELA Administration Bisacodyl 10 mg 10/31/19 08:10 Dulcolax NV QDAY PRN Constipation Clopidogrel Bisulfate 75 mg 10/31/19 16:00 11/01/19 11:41 Plavix PO 75 mg QDAY ANGELA Administration Docusate Sodium 100 mg 10/31/19 10:00 11/01/19 11:40 Colace PO 100 mg BID ANGELA Administration Heparin Sodium (Porcine) 5,000 unit 10/31/19 22:00 11/01/19 11:40 Heparin SUB-Q 5,000 unit Q12HR ANGELA Administration Labetalol HCl 10 mg 10/31/19 20:15 11/01/19 11:40 Labetalol IV 10 mg Q4HR PRN Administration Hypertension Lactulose 20 gm 10/31/19 18:00 11/01/19 11:41 Cephulac PO 20 gm Q6HR ANGELA Administration Lisinopril 20 mg 11/01/19 13:00 Zestril PO BID ANGELA Magnesium Hydroxide 30 ml 10/31/19 08:10 Milk Of Magnesia PO Q4H PRN Constipation Metoclopramide HCl 10 mg 10/31/19 08:10 Reglan PO Q6H PRN Nausea And Vomiting Ondansetron HCl 4 mg 10/31/19 08:10 11/01/19 11:40 Zofran IV 4 mg Q8H PRN Administration Nausea And Vomiting Promethazine HCl 25 mg 10/31/19 08:10 Phenergan NV Q6H PRN Nausea And Vomiting Senna 8.6 mg 10/31/19 08:10 Senokot PO Q12H PRN Laxative Effect Sodium Chloride 10 ml 10/31/19 08:10 Sodium Chloride Flush Syringe 10 Ml IV PRN PRN LINE FLUSH
[2019-11-01] MEDS ORDERED: PHOS-NAK POWDER PACKET PO ONE (16:56)
[2019-11-01] MEDS: LISINOPRIL 20 MG TAB PO SCH ×2 (18:38→22:17)
[2019-11-02 05:36] LABS: BUN/Creatinine Ratio 11; Blood Urea Nitrogen 10 mg/dL (9-20); Hemolysis Index 21
[2019-11-02] MEDS: HEPARIN 5,000 UNIT/1 ML VIAL SUB-Q SCH ×2 (09:51→22:00)
[2019-11-02] MEDS: DOCUSATE SODIUM 100 MG CAP PO SCH ×2 (09:51→22:00)
[2019-11-02] MEDS: LISINOPRIL 20 MG TAB PO SCH ×2 (09:51→22:00)
[2019-11-02] MEDS: ASPIRIN 325 MG TAB PO SCH (09:51)
[2019-11-02] MEDS: CLOPIDOGREL 75 MG TAB PO SCH (09:58)
[2019-11-02] MEDS ORDERED: amLODIPine 5 MG TAB PO SCH (10:00)
--- NOTE | 2019-11-02 15:27 | Progress Note ---
Subjective Date of service: 11/02/19 Principal diagnosis: stroke Interval history: MRI b + for R subcortical acute stroke consistent w exam and presentation ECHO no source of emboli cont current mgmt no additional recomm signing off Objective - Vital Sign Vital Signs - 12hr 11/02/19 11/02/19 11/02/19 03:32 07:59 08:20 Temperature 97.9 F 98.5 F Pulse Rate 84 68 Respiratory 18 20 Rate Blood Pressure 143/100 158/109 O2 Sat by Pulse 96 95 96 Oximetry 11/02/19 11/02/19 11/02/19 09:51 09:58 11:34 Temperature 98.5 F Pulse Rate 68 68 81 Respiratory 20 Rate Blood Pressure 158/109 158/109 159/120 O2 Sat by Pulse 96 Oximetry 11/02/19 11:35 Temperature Pulse Rate Respiratory Rate Blood Pressure 164/115 O2 Sat by Pulse Oximetry - Laboratory Findings CBC and BMP: 11/01/19 05:04 11/02/19 04:32 Abnormal Lab Findings: Abnormal Labs 10/31/19 10/31/19 10/31/19 04:53 04:53 13:22 RBC 5.17 H Hgb 16.3 H Hct 47.7 H Lymph % (Auto) 12.1 L Lymph # 1.1 L Seg Neutrophils % 81.9 H Sodium 133 L Glucose 134 H Phosphorus Magnesium Ammonia 61.0 H Cholesterol LDL Cholesterol Direct 10/31/19 11/01/19 11/01/19 17:04 05:04 05:04 RBC 5.42 H Hgb 16.9 H Hct 50.9 H Lymph % (Auto) Lymph # Seg Neutrophils % Sodium Glucose 107 H Phosphorus Magnesium Ammonia Cholesterol 250 H LDL Cholesterol Direct 186 H 11/01/19 11/02/19 13:32 04:32 RBC Hgb Hct Lymph % (Auto) Lymph # Seg Neutrophils % Sodium Glucose 105 H Phosphorus 2.30 L Magnesium 2.50 H 2.40 H Ammonia Cholesterol LDL Cholesterol Direct
--- NOTE | 2019-11-02 15:57 | Progress Note ---
Assessment and Plan - Patient Problems (1) CVA (cerebral vascular accident) Current Visit: Yes Status: Acute Plan to address problem: Neurology consult 10/30 CT head shows no acute intracranial abnormality 10/30 CTA neck shows no significant stenosis appreciated. Mildly prominent thyroid gland noted. 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 10/31 MRI brain shows an acute/recent 1.2 cm right subcortical infarct in the posterior limb of the internal capsule Permissive hypertension for 24 hr, target blood pressure less than 210/110 ST/PT/OT consult Aspirin and statin therapy 10/31 ACEi and CCB started, adjust as needed Seizure precautions Aspiration and fall precautions Speech therapy assessment completed and recommended a mechanical soft diet with thin liquids PT and OT recommends acute rehab, CM aware, patient is under funded Maintain euglycemia and euthermia 10/30 Hemoglobin A1c 5.6 10/30 lipid panel: triglycerides 102, cholesterol 250, LDL 186, HDL 43, statin increased to 80mg Neurology has signed off (2) Hypertensive emergency Current Visit: Yes Status: Acute Plan to address problem: Presentation blood pressure 181/118 Permissive hypertension for 24 hours for CVA Labetalol PRN for systolic blood pressure>160 10/31 started lisinopril and amlodipine (increased on 11/01) Blood pressure monitoring per protocol (3) Hyponatremia Current Visit: Yes Status: Resolved Plan to address problem: Admit sodium 133, mild Monitor neuro status Trend BMP Maintenance IV fluid for 1 L 10/31 sodium 137 (4) Hyperammonemia Current Visit: Yes Status: Resolved Plan to address problem: Hyperammonia: 10/30 ammonia 61 Lactulose p.o. every 6 Trend ammonia Supportive care 10/31 ammonia 40 (5) Alcohol abuse Current Visit: Yes Status: Chronic Plan to address problem: Admitted with hyperammonia, Corrected with lactulose CIWA protocol initiated Patient initially denied chronic alcohol use however on 10/31 he admits to having 2-3 beers every other day and occasional liquor intake on weekends. (6) Hypophosphatasia Current Visit: Yes Status: Acute Plan to address problem: 10/31 phosphorus 2.3, 11/01 2.8 Replete as needed (7) DVT prophylaxis Current Visit: Yes Status: Acute Plan to address problem: SCDs to bilateral lower extremities while in bed Heparin subcu History Interval history: This is a 49-year-old patient who presents to the emergency department on 10/30 for evaluation of left-sided weakness. The patient states he had 2 beers around 9 PM on 10/29 and then he went to sleep however at 0100 his noted that he had problems standing up and he had a fall of a fall with no injury. Stroke protocol was initiated in the emergency department. He was determined to not be a TPA candidate because he presented more than 4.5 hours after last known well. 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 Neurology has been consulted. MRI brain shows right sided subcortical acute ST/PT/OT consulted. Seen at bedside with physical therapy and Occupational Therapy and both recommend acute rehab however patient is under funded. He still exhibits left-sided droop however left-sided hemiparalysis has improved. Dr. Nance had an extensive conversation with his at bedside and all questions were answered. 10/31: MRI brain, ST/OT/PT consulted, pending recommendations Hospitalist Physical - Constitutional Vitals: Temp Pulse Resp BP Pulse Ox 98.5 F 81 20 164/115 96 11/02/19 11:34 11/02/19 11:34 11/02/19 11:34 11/02/19 11:35 11/02/19 11:34 General appearance: Present: no acute distress, well-nourished - EENT Eyes: Present: PERRL, EOM intact ENT: hearing intact, clear oral mucosa - Neck Neck: Present: normal ROM - Respiratory Respiratory effort: normal Respiratory: bilateral: CTA - Cardiovascular Rhythm: regular Heart Sounds: Present: S1 & S2. Absent: systolic murmur, diastolic murmur - Extremities Extremities: no ischemia, pulses intact, pulses symmetrical, No edema, normal temperature, normal color Peripheral Pulses: within normal limits - Abdominal General gastrointestinal: soft, non-tender, non-distended, normal bowel sounds - Integumentary Integumentary: Present: clear, warm, dry - Psychiatric Psychiatric: cooperative - Neurologic Neurologic: CNII-XII intact, focal deficits (LHP) - Allied Health Allied health notes reviewed: nursing, PT, ST, OT, social work, case management HEART Score - HEART Score Troponin: Troponin T < 0.010 ng/mL (0.00-0.029) 10/31/19 04:53 Results - Labs CBC & Chem 7: 11/01/19 05:04 11/02/19 04:32 Labs: Laboratory Last Values WBC 10.5 K/mm3 (4.5-11.0) 11/01/19 05:04 RBC 5.42 M/mm3 (3.65-5.03) H 11/01/19 05:04 Hgb 16.9 gm/dl (11.8-15.2) H 11/01/19 05:04 Hct 50.9 % (35.5-45.6) H 11/01/19 05:04 MCV 94 fl (84-94) 11/01/19 05:04 MCH 31 pg (28-32) 11/01/19 05:04 MCHC 33 % (32-34) 11/01/19 05:04 RDW 14.4 % (13.2-15.2) 11/01/19 05:04 Plt Count 210 K/mm3 (140-440) 11/01/19 05:04 Lymph % (Auto) 12.1 % (13.4-35.0) L 10/31/19 04:53 Tucker % (Auto) 5.1 % (0.0-7.3) 10/31/19 04:53 Eos % (Auto) 0.4 % (0.0-4.3) 10/31/19 04:53 Baso % (Auto) 0.5 % (0.0-1.8) 10/31/19 04:53 Lymph # 1.1 K/mm3 (1.2-5.4) L 10/31/19 04:53 Tucker # 0.5 K/mm3 (0.0-0.8) 10/31/19 04:53 Eos # 0.0 K/mm3 (0.0-0.4) 10/31/19 04:53 Baso # 0.0 K/mm3 (0.0-0.1) 10/31/19 04:53 Seg Neutrophils % 81.9 % (40.0-70.0) H 10/31/19 04:53 Seg Neutrophils # 7.4 K/mm3 (1.8-7.7) 10/31/19 04:53 PT 12.6 Sec. (12.2-14.9) 10/31/19 04:53 INR 0.93 (0.87-1.13) 10/31/19 04:53 APTT 27.2 Sec. (24.2-36.6) 10/31/19 04:53 Thrombin Time 18.1 Sec. (15.1-19.6) 10/31/19 04:53 Sodium 139 mmol/L (137-145) 11/02/19 04:32 Potassium 4.2 mmol/L (3.6-5.0) 11/02/19 04:32 Chloride 102.0 mmol/L (98-107) 11/02/19 04:32 Carbon Dioxide 25 mmol/L (22-30) 11/02/19 04:32 Anion Gap 16 mmol/L 11/02/19 04:32 BUN 10 mg/dL (9-20) 11/02/19 04:32 Creatinine 0.9 mg/dL (0.8-1.3) 11/02/19 04:32 Estimated GFR > 60 ml/min 11/02/19 04:32 BUN/Creatinine Ratio 11 % 11/02/19 04:32 Glucose 105 mg/dL (75-100) H 11/02/19 04:32 POC Glucose 91 (70-105) 11/02/19 11:47 Hemoglobin A1c 5.6 % (4-6) 10/31/19 17:04 Calcium 10.0 mg/dL (8.4-10.2) 11/02/19 04:32 Phosphorus 2.80 mg/dL (2.5-4.5) D 11/02/19 04:32 Magnesium 2.40 mg/dL (1.7-2.3) H 11/02/19 04:32 Total Bilirubin 0.40 mg/dL (0.1-1.2) 10/31/19 13:22 Direct Bilirubin < 0.2 mg/dL (0-0.2) 10/31/19 13:22 Indirect Bilirubin 0.2 mg/dL 10/31/19 13:22 AST 21 units/L (5-40) 10/31/19 13:22 ALT 42 units/L (7-56) 10/31/19 13:22 Alkaline Phosphatase 114 units/L (35-129) 10/31/19 13:22 Troponin T < 0.010 ng/mL (0.00-0.029) 10/31/19 04:53 Ammonia 40.0 umol/L (25-60) 11/01/19 05:04 Total Protein 7.2 g/dL (6.3-8.2) 10/31/19 13:22 Albumin 3.9 g/dL (3.9-5) 10/31/19 13:22 Albumin/Globulin Ratio 1.2 % 10/31/19 13:22 Triglycerides 102 mg/dL (2-149) 10/31/19 17:04 Cholesterol 250 mg/dL (50-199) H 10/31/19 17:04 LDL Cholesterol Direct 186 mg/dL (50-130) H 10/31/19 17:04 HDL Cholesterol 43 mg/dL (40-59) 10/31/19 17:04 Cholesterol/HDL Ratio 5.81 % 10/31/19 17:04 - Diagnostic Impressions Diagnostic Impressions: Echocardiogram 10/31/19 19:22 Transthoracic Echocardiogram Indication: Stroke BP: 184/123 HR: 62 Conclusions *The study was technically limited due to the patient's body habitus and positioning. *Global left ventricular systolic function is normal. *The estimated ejection fraction is 55-60%. *Abnormal left ventricular diastolic filling is observed, consistent with impaired relaxation. *There is mild mitral regurgitation. *There is no pericardial effusion. Findings Procedure Info: The study was technically limited due to the patient's inability to lay in the left lateral decubitus position. Patients' body habitus and positioning. Left Ventricle: The left ventricular chamber size is normal. Global left ventricular systolic function is normal. The estimated ejection fraction is 55-60%. Abnormal left ventricular diastolic filling is observed, consistent with impaired relaxation. Left Atrium: The left atrial chamber size is normal. Right Ventricle: The right ventricular cavity size is normal. Right Atrium: The right atrial cavity size is normal. Aortic Valve: The aortic valve is trileaflet. There is no evidence of aortic regurgitation. There is no evidence of aortic stenosis. Mitral Valve: The mitral valve leaflets appear normal. There is mild mitral regurgitation. Tricuspid Valve: The tricuspid valve leaflets are normal. There is trace tricuspid regurgitation. Pulmonic Valve: The pulmonic valve appears normal. There is trace pulmonic regurgitation. Pericardium: There is no pericardial effusion. Aorta: The aorta appears normal. Venous: The inferior vena cava appears normal in size. Measurements Chambers 2D Name Value Normal Range IVSd (2D) 1.07 cm (0.6 - 1.1) LVPWd (2D) 1.07 cm (0.6 - 1.1) LVIDd (2D) 4.23 cm (3.7 - 5.6) LVIDs (2D) 2.72 cm (2 - 3.8) LV FS (2D) 35.77 % - EF Teichholz (2D) 65.66 % - Ao root diameter (2D) 3.03 cm (2 - 3.7) Volumes/Mass Name Value Normal Range LA ESV SP 4CH (A/L) 25.97 ml - LA ESV SP 2CH (A/L) 18.93 ml - LA ESV BP (A/L) 22.21 ml - LA ESV SP 4CH (MOD) 23.65 ml - LA ESV SP 2CH (MOD) 17.98 ml - LV EDV SP 4CH (MOD) 73.1 ml - LV ESV SP 4CH (MOD) 29.2 ml - EF SP 4CH (MOD) 60.05 % - LV EDV SP 2CH (MOD) 76.43 ml - LV ESV SP 2CH (MOD) 25.85 ml - EF SP 2CH (MOD) 66.18 % - LV EDV BP 75.79 ml - LV ESV BP 28.12 ml - BP EF (MOD) 62.9 % - Diastolic/Systolic Function Name Value Normal Range MV E-wave Vmax 0.81 m/sec - MV deceleration time 239.53 msec - MV A-wave Vmax 0.8 m/sec - MV E:A ratio 1.01 ratio - Aortic Valve Name Value Normal Range AV Vmax 1.1 m/sec - AV VTI 21.59 cm - AV peak gradient 4.86 mmHg - AV mean gradient 2.57 mmHg - LVOT diameter 2.18 cm - LVOT Vmax 0.85 m/sec - LVOT VTI 17.49 cm - LVOT peak gradient 2.91 mmHg - LVOT mean gradient 1.32 mmHg - SV LVOT 65.35 ml - MARCUS (continuity Vmax) 2.89 cm2 - MARCUS (continuity VTI) 3.03 cm2 - Ascending Ao 3.16 cm - Tricuspid Valve Name Value Normal Range IVC diameter 0.97 cm (1.2 - 2.3) Pulmonic Valve/Qp:Qs Name Value Normal Range PV Vmax 1.09 m/sec - PV VTI 17.49 cm - PV peak gradient 4.75 mmHg - PV mean gradient 1.55 mmHg - NJ end-diastolic Vmax 0.73 m/sec - RVOT Vmax 0.59 m/sec - RVOT VTI 12.02 cm - RVOT peak gradient 1.41 mmHg - Nance/IV: Voiding Method Condom Catheter IV Catheter Type [Right INT / Saline Lock Forearm] IV Catheter Type [Right Peripheral IV Antecubital] Active Medications - Current Medications Current Medications: Generic Name Dose Route Start Last Admin Trade Name Freq PRN Reason Stop Dose Admin Acetaminophen 650 mg 10/31/19 08:10 Tylenol PO Q4H PRN Pain, Mild (1-3) Amlodipine Besylate 5 mg 11/02/19 10:00 11/02/19 09:58 Amlodipine PO 5 mg QDAY ANGELA Administration Aspirin 325 mg 11/01/19 10:00 11/02/19 09:51 Aspirin PO 325 mg QDAY ANGELA Administration Atorvastatin Calcium 80 mg 11/01/19 19:38 11/01/19 22:17 Lipitor PO 80 mg QHS ANGELA Administration Bisacodyl 10 mg 10/31/19 08:10 Dulcolax NJ QDAY PRN Constipation Clopidogrel Bisulfate 75 mg 10/31/19 16:00 11/02/19 09:58 Plavix PO 75 mg QDAY ANGELA Administration Docusate Sodium 100 mg 10/31/19 10:00 11/02/19 09:51 Colace PO 100 mg BID ANGELA Administration Heparin Sodium (Porcine) 5,000 unit 10/31/19 22:00 11/02/19 09:51 Heparin SUB-Q 5,000 unit Q12HR ANGELA Administration Labetalol HCl 10 mg 10/31/19 20:15 11/01/19 11:40 Labetalol IV 10 mg Q4HR PRN Administration Hypertension Lisinopril 20 mg 11/01/19 14:00 11/02/19 09:51 Zestril PO 20 mg BID ANGELA Administration Lorazepam 2 mg 11/01/19 12:41 Ativan PO Q1HR PRN CIWA-Ar 8-15 Lorazepam 4 mg 11/01/19 12:41 Ativan PO Q1HR PRN CIWA-Ar 16-25 Magnesium Hydroxide 30 ml 10/31/19 08:10 Milk Of Magnesia PO Q4H PRN Constipation Metoclopramide HCl 10 mg 10/31/19 08:10 Reglan PO Q6H PRN Nausea And Vomiting Ondansetron HCl 4 mg 10/31/19 08:10 11/01/19 11:40 Zofran IV 4 mg Q8H PRN Administration Nausea And Vomiting Promethazine HCl 25 mg 10/31/19 08:10 Phenergan NJ Q6H PRN Nausea And Vomiting Senna 8.6 mg 10/31/19 08:10 Senokot PO Q12H PRN Laxative Effect Sodium Chloride 10 ml 10/31/19 08:10 Sodium Chloride Flush Syringe 10 Ml IV PRN PRN LINE FLUSH
[2019-11-03] MEDS ORDERED: LISINOPRIL 20 MG TAB PO SCH (09:00)
[2019-11-03] MEDS: ASPIRIN 325 MG TAB PO SCH (09:14)
[2019-11-03] MEDS: CLOPIDOGREL 75 MG TAB PO SCH (09:14)
[2019-11-03] MEDS: DOCUSATE SODIUM 100 MG CAP PO SCH (09:14)
[2019-11-03] MEDS: HEPARIN 5,000 UNIT/1 ML VIAL SUB-Q SCH (09:16)
[2019-11-03] MEDS ORDERED: amLODIPine 10 MG TAB PO SCH (10:00)
--- NOTE | 2019-11-03 13:00 | Discharge Summary ---
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 The patient states he had 2 beers around 9 PM on 10/29 and then he went to sleep however at 0100 his noted that he had problems standing up and he had a fall of a fall with no injury. Stroke protocol was initiated in the emergency department. He was determined to not be a TPA candidate because he presented more than 4.5 hours after last known well. 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 Neurology has been consulted. MRI brain shows right sided subcortical acute ST/PT/OT consulted who recommend acute rehab however patient is under funded. He still exhibits left-sided droop however left-sided hemiparalysis has improved. Dr. Nance had an extensive conversation with his at bedside and all questions were answered on 11/01. He is medically stable for discharge. Given patient's unfunded state, CM contacted to search for [facility] acute rehab bed and set up [facility] home health PT. Patient will need to follow-up with his primary care physician within 1 to 2 weeks of discharge and neurology. - Patient Problems (1) CVA (cerebral vascular accident) Current Visit: Yes Status: Acute Plan to address problem: 10/30 CT head shows no acute intracranial abnormality 10/30 CTA neck shows no significant stenosis appreciated. Mildly prominent thyroid gland noted. 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 10/31 MRI brain shows an acute/recent 1.2 cm right subcortical infarct in the posterior limb of the internal capsule Continue aspirin and statin therapy Continue ACEi and CCB Continue seizure precautions Continue aspiration and fall precautions Speech therapy assessment completed and recommended a mechanical soft diet with thin liquids PT and OT recommends acute rehab, CM aware, patient is under funded 10/30 Hemoglobin A1c 5.9 10/30 lipid panel: triglycerides 102, cholesterol 250, LDL 186, HDL 43, statin increased to 80mg Follow-up with outpatient neurology (2) Hypertensive emergency Current Visit: Yes Status: Acute Plan to address problem: Presentation blood pressure 181/118 Continue lisinopril, amlodipine, hydralazine Blood pressure monitoring per PCP instructions (3) Hyponatremia Current Visit: Yes Status: Resolved Plan to address problem: Admit sodium 133, mild 10/31 sodium 137, 11/01 sodium 139 (4) Hyperammonemia Current Visit: Yes Status: Resolved Plan to address problem: 10/30 ammonia 61 Lactulose p.o. every 6 10/31 ammonia 40 (5) Alcohol abuse Current Visit: Yes Status: Chronic Plan to address problem: Admitted with hyperammonia, Corrected with lactulose Alcohol cessation education completed Patient initially denied chronic alcohol use however on 10/31 he admits to having 2-3 beers every other day and occasional liquor intake on weekends. (6) Hypophosphatasia Current Visit: Yes Status: Resolved Plan to address problem: 10/31 phosphorus 2.3, 11/01 2.8 Disposition: DC-01 TO HOME OR SELFCARE Time spent for discharge: 45 Core Measure Documentation - Palliative Care Palliative Care/ Comfort Measures: Not Applicable - Core Measures Any of the following diagnoses?: stroke - Stroke Discharge Requirements Statin for LDL = or >70 mg/dl on DC: Yes Anticoag for atrial fib/atrial flutter: Not Applicable Antithrombotic for ischemic stroke: Yes Exam - Constitutional Vitals: Temp Pulse Resp BP Pulse Ox 98.5 F 78 16 167/105 100 11/03/19 07:33 11/03/19 12:00 11/03/19 07:33 11/03/19 07:33 11/03/19 07:41 General appearance: Present: no acute distress - EENT Eyes: Present: PERRL, EOM intact ENT: hearing intact, clear oral mucosa, dentition normal - Neck Neck: Present: supple, normal ROM - Respiratory Respiratory effort: normal Respiratory: bilateral: CTA - Cardiovascular Rhythm: regular Heart Sounds: Present: S1 & S2. Absent: systolic murmur, diastolic murmur - Extremities Extremities: no ischemia, pulses intact, pulses symmetrical, No edema, normal temperature, normal color Peripheral Pulses: within normal limits - Abdominal General gastrointestinal: Present: soft, non-tender, non-distended, normal bowel sounds - Integumentary Integumentary: Present: clear, warm, dry - Musculoskeletal Musculoskeletal: left sided weakness - Psychiatric Psychiatric: appropriate mood/affect, cooperative - Neurologic Neurologic: CNII-XII intact, focal deficits (Left-sided hemiparesis, left-sided facial droop) - Allied Health Allied health notes reviewed: nursing, PT, ST, OT, case management Plan Activity: advance as tolerated, no driving until cleared by PCP Diet: low fat, low cholesterol, low salt Special Instructions: record daily BP diary, physical therapy, occupational therapy Additional Instructions: Present to nearest emergency department or contact your primary care physician if you experience any symptoms. Follow-up with your primary care physician within 1 to 2 weeks of discharge. Follow-up with neurology within 1 to 2 weeks of discharge. You have been provided with the contact admission of the local neurologist however you are free to choose any neurologist. Continue your prescribed medications and obtain a home blood pressure monitoring machine. Follow up with: PRIMARY MD LION [Primary Care Provider] - 3-5 Days JORGE AUSTIN MD [Staff Physician] - 7 Days Prescriptions: AtorvaSTATin [Lipitor] 80 mg PO QHS #30 tablet amLODIPine 10 mg PO QDAY #30 tablet hydrALAZINE [Apresoline TAB] 10 mg PO Q8HR #90 tablet Aspirin 325 mg PO QDAY #30 tablet Clopidogrel [Plavix] 75 mg PO QDAY #30 tablet lisinopriL [Zestril TAB] 20 mg PO BID #60 tablet
[2019-11-03] MEDS ORDERED: hydrALAZINE 10 MG TAB PO SCH (14:00)
[2019-11-03] MEDS: ONDANSETRON 4 MG/2 ML INJ IV PRN (18:09)
[2019-11-03] MEDS ORDERED: hydrALAZINE 25 MG TAB PO ONE (18:22)
[2019-11-03] MEDS ORDERED: hydrALAZINE 10 MG TAB PO ONE (18:23)
[2019-11-03 19:03] VITALS: BP 162/118
== END 2019-11-03 19:44 | disposition home health service (06) | DRG 65 ==
LOC: ED 04:04 → 4A 06:16 → OBSVTOIN 11-02 14:07
PROVIDERS: ADMIT Internal Medicine Geriatric Medicine; ATTEND Internal Medicine
DX: I63.9 Cerebral infarction, unspecified (principal); E87.1 Hypo-osmolality and hyponatremia; I16.1 Hypertensive emergency; G81.94 Hemiplegia, unspecified affecting left nondominant side; E72.20 Disorder of urea cycle metabolism, unspecified; F10.10 Alcohol abuse, uncomplicated; E83.39 Other disorders of phosphorus metabolism; R29.708 NIHSS score 8; Z88.5 Allergy status to narcotic agent; Z79.899 Other long term (current) drug therapy; Z79.891 Long term (current) use of opiate analgesic
CPT/HCPCS: 36415; 70450; 70496; 70498; 70551; 80048; 80061; 80076; 82140; 82962; 83036; 83735; 84100; 84484; 85025; 85027; 85610; 85670; 85730; 93005; 93306; 96374; 96375; G0378; A9270-GY; J1644; J2405; J7030; Q9967